=== PATIENT | male | born 1950 | race Caucasian/White ===

== ENCOUNTER 2017-02-05 10:19 | Outpatient (CLI) | payer OTHER ==
[2017-02-05 18:13] LABS: CHOL/HDL RATIO 6.2 (<5.0); CHOLESTEROL 241 mg/dL; HDL CHOLESTEROL 39 mg/dL; LDL/HDL RATIO 4.6 (<3.6); TRIGLYCERIDES 109 mg/dL; VLDL CHOLESTEROL 22 mg/dL
== END 2017-02-05 10:20 | disposition home or self-care (01) ==
LOC: LAB.F 10:19
PROVIDERS: ATTEND Internal Medicine
DX: E78.00 Pure hypercholesterolemia, unspecified (principal)
CPT/HCPCS: 36415; 80061

== ENCOUNTER 2017-02-14 11:10 | Outpatient (CLI) | payer OTHER ==
[2017-02-14 18:51] LABS: ALBUMIN/GLOBULIN RATIO 1.6 (1.0-2.2); BILIRUBIN,TOTAL 0.8 mg/dL (0.2-1.0); BUN - BLOOD UREA NITROGEN 21 mg/dL (6-20); CALCIUM 9.1 mg/dL (8.5-10.3); CARBON DIOXIDE - CO2 27 mmol/L (21-32); CHLORIDE 101 mmol/L (101-111); CHOL/HDL RATIO 5.6 (<5.0); CHOLESTEROL 211 mg/dL; CREATININE 0.9 mg/dL (0.6-1.2); GFR - MDRD 85 (>89); GLUCOSE 112 mg/dL (70-100); HDL CHOLESTEROL 38 mg/dL; LDL/HDL RATIO 4.2 (<3.6); POTASSIUM 3.9 mmol/L (3.5-5.0); SODIUM 137 mmol/L (135-145); TOTAL PROTEIN 7.1 g/dL (6.7-8.2); TRIGLYCERIDES 64 mg/dL; VLDL CHOLESTEROL 13 mg/dL
== END 2017-02-14 11:11 | disposition home or self-care (01) ==
LOC: LAB.F 11:10
PROVIDERS: ATTEND Internal Medicine
DX: E78.00 Pure hypercholesterolemia, unspecified (principal)
CPT/HCPCS: 36415; 80053; 80061; 84443